=== PATIENT | female | born 1970 | race Caucasian/White ===

== ENCOUNTER 2016-07-16 19:01 | Emergency (ER) | payer MEDICAID, OTHER ==
[~2016-07-16] VITALS: Ht 165.1 cm; Wt 74.8 kg
[2016-07-16 19:10] VITALS: BP 132/78; PULSE 78; RESP 18; TEMP 98.7; O2SAT 100
--- NOTE | 2016-07-16 19:10 | NUR ---
Patient came in c/o eye have been puffy and rediness and swelling for the past 2 weeks. No S/s of distress will continue to monitor patient.
--- NOTE | 2016-07-16 19:15 | NUR ---
Patient to ER bed 7 to gown for evaluation. Side rails up. Report given to MELANIE Morrison.
--- NOTE | 2016-07-16 19:20 | NUR ---
SOLEDAD Mercer at bedside seen patient.
[2016-07-16 20:41] VITALS: BP 128/72; PULSE 72; RESP 16; TEMP 98.1; O2SAT 100
--- NOTE | 2016-07-16 20:41 | NUR ---
Patient given written and verbal discharge instructions and verbalizes understanding. ER [facility]IT[facility] LEAD discussed with patient the results and treatment provided. Patient in stable condition. ID arm band removed. Rx of zyrtec, fluticose given. Patient educated on pain management and to follow up with PMD. Pain Scale 0/10. Opportunity for questions provided and answered.
== END 2016-07-16 20:41 | disposition home or self-care (01) ==
LOC: SED 19:01
DX: J30.9 Allergic rhinitis, unspecified (principal)
CPT/HCPCS: 99283